=== PATIENT | male | born 1955 | race African-American/Black ===

== ENCOUNTER 2023-11-21 08:57 | Inpatient (IN) ==
[2023-11-21 12:48] LABS: ERYTHROCYTE SEDIMENTATION RATE 68 MM/HOUR (0-15)
[2023-11-21 12:49] LABS: BASOPHILS # (AUTO) 0.1 X10^3/uL (0.0-0.1); BASOPHILS % (AUTO) 1.6 % (0.2-1.0); EOSINOPHILS # (AUTO) 0.1 x10^3/uL (0.0-0.2); EOSINOPHILS % (AUTO) 2.6 % (0.9-2.9); HEMATOCRIT 35.3 % (42.0-54.0); HEMOGLOBIN 11.7 g/dL (13.5-18.0); LYMPHOCYTES # (AUTO) 1.1 X10^3/uL (1.3-2.9); LYMPHOCYTES % (AUTO) 30.9 % (21.0-51.0); MEAN CORPUSCULAR HEMOGLOBIN 29.5 pg (27.0-34.0); MEAN CORPUSCULAR HGB CONC 33.2 g/dL (33.0-35.0); MEAN CORPUSCULAR VOLUME 89.1 fL (80.0-100.0); MEAN PLATELET VOLUME 9.8 fL (7.4-11.0); MONOCYTES # (AUTO) 0.4 x10^3/uL (0.3-0.8); MONOCYTES % (AUTO) 11.1 % (0.0-13.0); NEUTROPHILS % (AUTO) 53.8 % (42.0-75.0); PLATELET COUNT 158 X10^3/uL (150.0-450.0); RED BLOOD COUNT 3.96 X10^6/uL (4.7-6.0); RED CELL DISTRIBUTION WIDTH 14.8 % (11.6-16.5); WHITE BLOOD COUNT 3.7 X10^3/uL (3.6-10.0)
[2023-11-21 12:54] LABS: INR 1.26 (0.8-1.3)
[2023-11-21 13:02] VITALS: BMI 20.4
[2023-11-21 13:08] LABS: ALANINE AMINOTRANSFERASE 18 Units/L (12-78); ALBUMIN 3.2 g/dL (3.4-5.0); ALKALINE PHOSPHATASE 128 Units/L (46-116); ASPARTATE AMINO TRANSFERASE 25 Units/L (15-37); BLOOD UREA NITROGEN 18 mg/dL (7-18); CALCIUM 8.6 mg/dL (8.5-10.1); CARBON DIOXIDE 30.1 mmol/L (21-32); CHLORIDE 104 mmol/L (98-107); COR CA(FOR HYPOALB) 9.2 mg/dL (8.5-10.1); COR NA(FOR HYPERGLY) 139 mmol/L (136-145); CREATININE 1.09 mg/dL (0.70-1.30); FREE T4 (FREE THYROXINE) 0.94 ng/dL (0.76-1.46); GLUCOSE 112 mg/dL (65-99); SODIUM 139 mmol/L (136-145); TOTAL PROTEIN 8.3 g/dL (6.4-8.2); TSH (3RD GENERATION) 0.879 uIU/mL (0.358-3.74); eGFR NON BLACK RACES > 60 (>60)
[2023-11-21 13:10] LABS: POTASSIUM 4.3 mmol/L (3.5-5.1)
[2023-11-21 13:30] LABS: BILIRUBIN,URINE NEGATIVE (NEGATIVE); BLOOD/HEMOGLOBIN,URINE NEGATIVE (NEGATIVE); GLUCOSE, URINE NEGATIVE (NEGATIVE); KETONES,URINE NEGATIVE (NEGATIVE); LEUKOCYTE ESTERASE ,URINE NEGATIVE (NEGATIVE); NITRITES,URINE NEGATIVE (NEGATIVE); PROTEIN,URINE 2+ (NEGATIVE); UROBILINOGEN,URINE NORMAL (NORMAL)
[2023-11-21 13:43] LABS: APPEARANCE,URINE CLEAR (CLEAR); BACTERIA,URINE NEGATIVE /HPF (NEGATIVE); COLOR,URINE YELLOW (YELLOW); RBC,URINE NONE SEEN /HPF (0-3); SQUAMOUS EPITHELIAL CELL,UR NEGATIVE /HPF (NEGATIVE)
[2023-11-21] MEDS: NS 1,000 ML IV 1,000 ML IV SCH (14:50)
--- NOTE | 2023-11-21 16:37 | RAD ---
EXAM: CHEST, PA/LAT ADULT HISTORY: weight loss; COMPARISON: None. TECHNIQUE: Two views FINDINGS: Heart size and mediastinal contours are normal. Lungs are mildly hyperinflated but otherwise clear as are the pleural spaces. No free air or pneumothorax. No acute bony abnormality. IMPRESSION: No acute radiographic abnormalities of the chest THIS IS AN ELECTRONICALLY VERIFIED FINAL REPORT 11/21/2023 4:33 PM - Electronically signed by Chase Esparza MD
--- NOTE | 2023-11-21 16:58 | CT ---
EXAM:ABDCMEN/PELVIS WITH CONHISTORY:abdominal pain, weight loss;COMPARISON:None available.TECHNIQUE:Multiple axial images of the abdomen and pelvis were obtained with IV contrast. Oral contrast was administered. Dose reduction techniques including Automated Exposure Control (AEC) and adjustment of mA and kV were utilized.FINDINGS:Lung bases are unremarkable. No free air.Bones show no lytic or destructive process with degenerative changes in the lower lumbar spine.Spleen, adrenal glands, kidneys appear normal. No hydronephrosis. Gallbladder mostly decompressed with gallstones present. There is abnormal filling defect in the main portal vein near the abril hepatis representing focal thrombus, tumor thrombus is another consideration. Small vessels are seen adjacent to the main portal vein suggesting there may be a chronic component to these findings. There is abnormal appearance at the left hepatic lobe near the portal confluence, this is suspicious for an infiltrating mass in this region but can not be adequately assessed on this study and will need MRI.Abdominal aorta not aneurysmal. Mild vascular calcification. No adenopathy.Nonobstructive bowel. No bowel inflammatory features. Mild colonic stool. Normal appendix. No bowel inflammatory features.Pancreas appears normal. There is periportal adenopathy with a lymph node measuring 2.2 cm. Mildly prominent gastrohepatic ligament lymph nodes are also noted.Prostate gland enlarged. Bladder unremarkable. No pelvic free fluid.IMPRESSION:1. 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 Recommend MRI with and without contrast to further evaluate with high suspicion for malignancy. Prominent gastrohepatic ligament lymph nodes are also evident.2. Pancreas unremarkable.3. Cholelithiasis.4. Nonobstructive bowel with mild colonic stool. Normal appendix.5. Prostate gland enlarged. Please correlate.THIS IS AN ELECTRONICALLY VERIFIED FINAL REPORT11/21/2023 4:55 PM - Electronically signed by Harshad House MD
[2023-11-21] MEDS: REMERON PO SCH (20:57)
[2023-11-21] MEDS: FLOMAX PO SCH (20:57)
[2023-11-21] MEDS: LIPITOR TAB 20 MG PO SCH (20:57)
[2023-11-21] MEDS: CYMBALTA PO SCH (20:57)
[2023-11-21] MEDS ORDERED: DETROL LA 2 MG CAP EXT REL PO SCH (21:00)
[2023-11-21] MEDS: DETROL LA 2 MG CAP EXT REL PO SCH (22:10)
[2023-11-22] MEDS: READI-CAT 2 ONE (07:32)
--- NOTE | 2023-11-22 08:22 | DR.H&P ---
H&P History & Physical for Day of: H&P Date: 11/21/23 Chief Complaint Chief Complaint: abdominal pain, hx of abnormal diagnostic imaging of liver History of Present Illness History of Present Illness: PT IS 67M, DIRECT ADMIT FOR TREATMENT AND EVALUATION OF ACUTE ILLNESS OF ABDOMINAL PAIN, WEIGHT LOSS, NAUSEA AND VOMITING. PT HAS HAD ABNORMAL LFTS ON OUTPT LABS AND HX OF ABNORMAL LIVER IMAGING STUDIES. PT HAS PMH OF HEP C, HTN, TANMAY, MDD, HYPERLIPIDEMIA. Social History Does patient currently use any type of tobacco product: Yes Type of Tobacco Use: Cigarettes How many years tobacco product used: 50 Alcohol Use: Occasionally Drug Use: None Medications Home Medications: Home Medications Medication Instructions Recorded Confirmed Type aspirin 81 mg tablet,delayed 81 mg PO DAILY 11/21/23 11/21/23 History release atorvastatin 20 mg tablet 20 mg PO HS 11/21/23 11/21/23 History cholecalciferol (vitamin D3) 50 50 mcg PO DAILY 11/21/23 11/21/23 History mcg (2,000 unit) tablet duloxetine 30 mg capsule,delayed 30 mg PO HS 11/21/23 11/21/23 History release sprinkle hydrochlorothiazide 25 mg tablet 25 mg PO DAILY 11/21/23 11/21/23 History lisinopril 40 mg tablet 40 mg PO DAILY 11/21/23 11/21/23 History mirtazapine 15 mg tablet 15 mg PO HS 11/21/23 11/21/23 History multivitamin 1 tab PO DAILY 11/21/23 11/21/23 History tamsulosin 0.4 mg capsule 0.8 mg PO HS 11/21/23 11/21/23 History tolterodine 1 mg tablet 1 mg PO BID 11/21/23 11/21/23 History Allergies Allergies Allergy/AdvReac Type Severity Reaction Status Date / Time No Known Allergies Allergy Verified 11/21/23 13:13 Labs 11/21/23 12:35 11/21/23 12:35 Labs: Laboratory WBC 3.7 X10^3/uL (3.6-10.0) 11/21/23 12:35 RBC 3.96 X10^6/uL (4.7-6.0) L 11/21/23 12:35 Hgb 11.7 g/dL (13.5-18.0) L 11/21/23 12:35 Hct 35.3 % (42.0-54.0) L 11/21/23 12:35 MCV 89.1 fL (80.0-100.0) 11/21/23 12:35 MCH 29.5 pg (27.0-34.0) 11/21/23 12:35 MCHC 33.2 g/dL (33.0-35.0) 11/21/23 12:35 RDW 14.8 % (11.6-16.5) 11/21/23 12:35 Plt Count 158 X10^3/uL (150.0-450.0) 11/21/23 12:35 MPV 9.8 fL (7.4-11.0) 11/21/23 12:35 Neut % (Auto) 53.8 % (42.0-75.0) 11/21/23 12:35 Lymph % (Auto) 30.9 % (21.0-51.0) 11/21/23 12:35 [place] % (Auto) 11.1 % (0.0-13.0) 11/21/23 12:35 Eos % (Auto) 2.6 % (0.9-2.9) 11/21/23 12:35 Baso % (Auto) 1.6 % (0.2-1.0) H 11/21/23 12:35 Neut # (Auto) 2.0 x10^3/uL (2.2-4.8) L 11/21/23 12:35 Lymph # (Auto) 1.1 X10^3/uL (1.3-2.9) L 11/21/23 12:35 [place] # (Auto) 0.4 x10^3/uL (0.3-0.8) 11/21/23 12:35 Eos # (Auto) 0.1 x10^3/uL (0.0-0.2) 11/21/23 12:35 Baso # (Auto) 0.1 X10^3/uL (0.0-0.1) 11/21/23 12:35 Absolute Nucleated RBC 0.1 /100WBC 11/21/23 12:35 ESR 68 MM/HOUR (0-15) H 11/21/23 12:35 PT 15.6 SECONDS (11.8-14.3) 11/21/23 12:35 INR Target Range - 11/21/23 12:35 INR 1.26 (0.8-1.3) 11/21/23 12:35 D-Dimer 0.69 ug/ml (0.0-0.57) H 11/21/23 12:35 Sodium 139 mmol/L (136-145) 11/21/23 12:35 Corrected Sodium 139 mmol/L (136-145) 11/21/23 12:35 Potassium 4.3 mmol/L (3.5-5.1) 11/21/23 12:35 Chloride 104 mmol/L (98-107) 11/21/23 12:35 Carbon Dioxide 30.1 mmol/L (21-32) 11/21/23 12:35 BUN 18 mg/dL (7-18) 11/21/23 12:35 Creatinine 1.09 mg/dL (0.70-1.30) 11/21/23 12:35 Est GFR (MDRD) Af Amer > 60 (>60) 11/21/23 12:35 Est GFR (MDRD) Non-Af > 60 (>60) 11/21/23 12:35 Glucose 112 mg/dL (65-99) H 11/21/23 12:35 Calcium 8.6 mg/dL (8.5-10.1) 11/21/23 12:35 Corrected Calcium 9.2 mg/dL (8.5-10.1) 11/21/23 12:35 Total Bilirubin 0.70 mg/dL (0.2-1.0) 11/21/23 12:35 AST 25 Units/L (15-37) 11/21/23 12:35 ALT 18 Units/L (12-78) 11/21/23 12:35 Alkaline Phosphatase 128 Units/L (46-116) H 11/21/23 12:35 C-Reactive Protein 1.50 mg/L (0-3.0) 11/21/23 12:35 Total Protein 8.3 g/dL (6.4-8.2) H 11/21/23 12:35 Albumin 3.2 g/dL (3.4-5.0) L 11/21/23 12:35 Globulin 5.1 g/dL (2.5-4.5) H 11/21/23 12:35 Albumin/Globulin Ratio 0.6 Ratio (1.1-2.1) L 11/21/23 12:35 Free T4 0.94 ng/dL (0.76-1.46) 11/21/23 12:35 TSH 3rd Generation 0.879 uIU/mL (0.358-3.74) 11/21/23 12:35 Specimen Type Random urine 11/21/23 13:18 Urine Color Yellow (YELLOW) 11/21/23 13:18 Urine Appearance Clear (CLEAR) 11/21/23 13:18 Urine pH 7.0 (5.0 - 8.0) 11/21/23 13:18 Ur Specific [place] 1.015 (1.000-1.030) 11/21/23 13:18 Urine Protein 2+ (NEGATIVE) 11/21/23 13:18 Urine Glucose (UA) Negative (NEGATIVE) 11/21/23 13:18 Urine Ketones Negative (NEGATIVE) 11/21/23 13:18 Urine Blood Negative (NEGATIVE) 11/21/23 13:18 Urine Nitrite Negative (NEGATIVE) 11/21/23 13:18 Urine Bilirubin Negative (NEGATIVE) 11/21/23 13:18 Urine Urobilinogen Normal (NORMAL) 11/21/23 13:18 Ur Leukocyte Esterase Negative (NEGATIVE) 11/21/23 13:18 Urine RBC None seen /HPF (0-3) 11/21/23 13:18 Urine WBC None seen /HPF (0-5) 11/21/23 13:18 Ur Squamous Epith Cells Negative /HPF (NEGATIVE) 11/21/23 13:18 Amorphous Sediment Trace /HPF (NEGATIVE) 11/21/23 13:18 Urine Bacteria Negative /HPF (NEGATIVE) 11/21/23 13:18 Ur Culture Indicated? No/not indicated 11/21/23 13:18 Review of Systems Constitutional: Malaise Eyes: No Symptoms Reported ENT: No Symptoms Reported Respiratory: No Symptoms Reported Cardiovascular: No Symptoms Reported Gastrointestinal: Nausea and Abdominal Pain Genitourinary: No Symptoms Reported Musculoskeletal: Back Pain Skin: No Symptoms Reported Neurological: No Symptoms Reported Physical Exam Vital Signs: Vital Signs Temperature 98.3 F Pulse Rate [Right Brachial] 65 Respiratory Rate 18 Blood Pressure [Right Arm] 173/84 O2 Sat by Pulse Oximetry 94 Oriented: Normal Eyes: Normal Ear: Normal Nose: Normal Throat: Normal Respiratory: RLL Diminished and LLL Diminished Cardiovascular: Normal : Normal Auscultation: Bowel Sounds: Normal Palpation: Liver Enlarged Tenderness: Diffuse Skin: Normal Musculoskeletal: Normal Psychiatric: Normal Mood Description: Calm Affect: Normal Speech Pattern: Clear and Appropriate Assessment/Plan (1) Abdominal pain: Narrative Support Text: ADMIT, CT ABD/PELVIS WITH CONTRAST VERIFY HOME MEDICATION IV HYDRATION, I&OS BP CONTROL, PAIN AND NAUSEA CONTROL Status: Acute (2) Nausea & vomiting: Status: Acute (3) Abnormal CT of the abdomen: Status: Acute (4) Hypertension: Status: Acute (5) Liver disease: Status: Acute
[2023-11-22] MEDS: TAB-A-VITE PO SCH (09:14)
[2023-11-22] MEDS: HYDROCHLOROTHIAZIDE 25 MG TAB PO SCH (09:14)
[2023-11-22] MEDS: ZESTRIL TAB 40 MG PO SCH (09:14)
[2023-11-22] MEDS: ASPIRIN 81 MG CHEWTAB PO SCH (09:14)
[2023-11-22 09:23] LABS: BASOPHILS # (AUTO) 0.1 X10^3/uL (0.0-0.1); BASOPHILS % (AUTO) 1.2 % (0.2-1.0); EOSINOPHILS # (AUTO) 0.1 x10^3/uL (0.0-0.2); EOSINOPHILS % (AUTO) 2.2 % (0.9-2.9); HEMATOCRIT 36.1 % (42.0-54.0); HEMOGLOBIN 12.1 g/dL (13.5-18.0); LYMPHOCYTES # (AUTO) 1.1 X10^3/uL (1.3-2.9); LYMPHOCYTES % (AUTO) 26.3 % (21.0-51.0); MEAN CORPUSCULAR HEMOGLOBIN 29.7 pg (27.0-34.0); MEAN CORPUSCULAR HGB CONC 33.5 g/dL (33.0-35.0); MEAN CORPUSCULAR VOLUME 88.6 fL (80.0-100.0); MEAN PLATELET VOLUME 10.2 fL (7.4-11.0); MONOCYTES # (AUTO) 0.3 x10^3/uL (0.3-0.8); MONOCYTES % (AUTO) 8.3 % (0.0-13.0); NEUTROPHILS # (AUTO) 2.6 x10^3/uL (2.2-4.8); PLATELET COUNT 157 X10^3/uL (150.0-450.0); RED BLOOD COUNT 4.07 X10^6/uL (4.7-6.0); RED CELL DISTRIBUTION WIDTH 14.6 % (11.6-16.5); WHITE BLOOD COUNT 4.2 X10^3/uL (3.6-10.0)
[2023-11-22 09:31] LABS: ALANINE AMINOTRANSFERASE 24 Units/L (12-78); ALBUMIN 3.2 g/dL (3.4-5.0); ALKALINE PHOSPHATASE 132 Units/L (46-116); ASPARTATE AMINO TRANSFERASE 31 Units/L (15-37); BLOOD UREA NITROGEN 15 mg/dL (7-18); CALCIUM 8.4 mg/dL (8.5-10.1); CARBON DIOXIDE 28.5 mmol/L (21-32); CHLORIDE 104 mmol/L (98-107); COR NA(FOR HYPERGLY) 137 mmol/L (136-145); CREATININE 1.08 mg/dL (0.70-1.30); GLUCOSE 117 mg/dL (65-99); POTASSIUM 4.1 mmol/L (3.5-5.1); SODIUM 137 mmol/L (136-145); TOTAL PROTEIN 8.3 g/dL (6.4-8.2); eGFR NON BLACK RACES > 60 (>60)
[2023-11-22 12:25] VITALS: O2SAT 97
[2023-11-22 16:15] VITALS: BP 175/85; PULSE 64; RESP 18; TEMP 98.3
== END 2023-11-22 16:10 | disposition short-term general hospital (02) | DRG 392 ==
LOC: MED/SURG → OBSVTOIN 11:32
PROVIDERS: ADMIT Internal Medicine; ATTEND Internal Medicine
DX: R93.2 Abnormal findings on diagnostic imaging of liver and biliary tract; B18.2 Chronic viral hepatitis C; R11.2 Nausea with vomiting, unspecified; I10 Essential (primary) hypertension; Z68.20 Body mass index [BMI] 20.0-20.9, adult; R79.1 Abnormal coagulation profile; R93.5 Abnormal findings on diagnostic imaging of other abdominal regions, including retroperitoneum; R63.4 Abnormal weight loss; N40.0 Benign prostatic hyperplasia without lower urinary tract symptoms; E88.09 Other disorders of plasma-protein metabolism, not elsewhere classified; R70.0 Elevated erythrocyte sedimentation rate; E78.5 Hyperlipidemia, unspecified; Z72.0 Tobacco use; R10.84 Generalized abdominal pain